=== PATIENT | male | born 1960 | race Caucasian/White ===

== ENCOUNTER → 2017-12-19 | Outpatient (CLI) | payer OTHER | LOC: M RAD 07:05 | DX: I10 Essential (primary) hypertension (principal); E66.3 Overweight; Z82.49 Family history of ischemic heart disease and other diseases of the circulatory system | CPT/HCPCS: 76775 ==

== ENCOUNTER → 2018-01-10 | Outpatient (CLI) | payer OTHER | LOC: M CARPUL 08:17 | DX: I10 Essential (primary) hypertension (principal); E66.3 Overweight | CPT/HCPCS: 93306 ==

== ENCOUNTER 2019-05-30 16:32 | Emergency (ER) | payer OTHER ==
[~2019-05-30] VITALS: Ht 182.9 cm; Wt 102.1 kg
[2019-05-30] MEDS ORDERED: MULTCAP PO (16:48)
[2019-05-30] MEDS ORDERED: LISI10TA4 (16:48)
[2019-05-30 17:12] LABS: BASO # 0.1 10^3/uL (0.0-0.2); BASO % 1.2 % (0.0-1.0); EOS # 0.6 10^3/uL (0.0-0.5); EOS % 7.3 % (0.0-3.0); HEMATOCRIT 40.2 % (42.0-52.0); HEMOGLOBIN 14.2 g/dl (13.5-17.5); LYMPH # 2.4 10^3/uL (1.5-5.0); LYMPH % 28.8 % (24.0-44.0); MEAN CORPUSCULAR HEMOGLOBIN 32.1 pg (27.0-33.0); MEAN CORPUSCULAR HGB CONC 35.3 g/dl (32.0-36.5); MONO # 0.7 10^3/uL (0.0-0.8); NEUTROPHILS # 4.4 10^3/uL (1.5-8.5); NEUTROPHILS % 53.3 % (36.0-66.0); PLATELET COUNT, AUTOMATED 245 10^3/uL (150-450); RED BLOOD COUNT 4.42 10^6/uL (4.30-6.10); WHITE BLOOD COUNT 8.3 10^3/uL (4.0-10.0)
[2019-05-30 17:36] LABS: BLOOD UREA NITROGEN 23 MG/DL (7-18); CALCIUM LEVEL 9.5 MG/DL (8.8-10.2); CARBON DIOXIDE LEVEL 26 MEQ/L (21-32); CHLORIDE LEVEL 106 MEQ/L (98-107); CK-MB VALUE MASS 2.8 NG/ML (<3.6); CPK CREATINE PHOSPHOKINASE 186 U/L (39-308); GLOMERULAR FILTRATION RATE > 60.0 (>49); GLUCOSE, FASTING 94 MG/DL (70-100); MB/CK RELATIVE INDEX 1.51 (< OR =4); SODIUM LEVEL 137 MEQ/L (136-145); TROPONIN I < 0.02 NG/ML (< 0.10)
[2019-05-30 17:45] VITALS: BP 133/77
[2019-05-30] MEDS ORDERED: SOMA350T PO (17:49)
[2019-05-30] MEDS ORDERED: GABA-843 PO (17:49)
--- NOTE | 2019-05-30 18:16 | REP ---
CHEST, SINGLE VIEW: There is no evidence of acute infiltrate. No pleural effusion is seen. The heart is normal in size. The mediastinal silhouette is unremarkable. The visualized osseous structures are intact. IMPRESSION: No acute pulmonary disease. Electronically Signed by Sandip Valdovinos MD 05/31/2019 10:25 A
--- NOTE | 2019-05-31 05:54 | ECGEPIP ---
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
== END 2019-05-30 18:01 | disposition home or self-care (01) ==
LOC: M ED 16:32
DX: G62.9 Polyneuropathy, unspecified (principal); I10 Essential (primary) hypertension; Z79.899 Other long term (current) drug therapy; Z88.0 Allergy status to penicillin; Z88.8 Allergy status to other drugs, medicaments and biological substances

== ENCOUNTER → 2019-10-22 | Outpatient (CLI) | payer SELFPAY ==
[~2019-10-22] MED LIST: GABA-843 PO; LISI10TA4; MULTCAP PO; SOMA350T PO
== END ==
LOC: M LABSMTC 11:03
PROVIDERS: ATTEND Pediatrics
DX: Z20.828 Contact with and (suspected) exposure to other viral communicable diseases (principal); Z11.59 Encounter for screening for other viral diseases

== ENCOUNTER → 2019-11-29 | Outpatient (CLI) | payer SELFPAY | LOC: M LABSMTC 10:05 | PROVIDERS: ATTEND Pediatrics | DX: Z11.59 Encounter for screening for other viral diseases (principal) ==

== ENCOUNTER 2021-04-29 19:37 | Observation (INO) | payer OTHER, SELFPAY ==
[~2021-04-29] VITALS: Ht 182.9 cm; Wt 101.6 kg
[~2021-04-29 19:37] MED LIST changes: +GABA-282 PO; -GABA-843 PO; +LISI10TA22; -LISI10TA4
[2021-04-29 20:55] LABS: BASO # 0.1 10^3/uL (0.0-0.2); EOS # 0.7 10^3/uL (0.0-0.5); EOS % 8.3 % (0.0-3.0); HEMATOCRIT 33.9 % (42.0-52.0); HEMOGLOBIN 11.3 g/dl (13.5-17.5); LYMPH # 2.6 10^3/uL (1.5-5.0); LYMPH % 29.3 % (24.0-44.0); MEAN CORPUSCULAR HEMOGLOBIN 29.4 pg (27.0-33.0); MEAN CORPUSCULAR HGB CONC 33.3 g/dl (32.0-36.5); MEAN CORPUSCULAR VOLUME 88.3 fl (80.0-96.0); MONO # 0.8 10^3/uL (0.0-0.8); MONO % 9.6 % (2.0-8.0); NEUTROPHILS # 4.5 10^3/uL (1.5-8.5); NEUTROPHILS % 51.6 % (36.0-66.0); PLATELET COUNT, AUTOMATED 264 10^3/uL (150-450); RED BLOOD COUNT 3.84 10^6/uL (4.30-6.10); WHITE BLOOD COUNT 8.8 10^3/uL (4.0-10.0)
[2021-04-29 21:06] LABS: INR 0.98; PROTHROMBIN TIME 13.4 SECONDS (12.7-14.5)
[2021-04-29 21:07] LABS: PARTIAL THROMBOPLASTIN TIME 31.8 SECONDS (25.9-37.0)
[2021-04-29 21:20] LABS: CK-MB VALUE MASS 3.9 NG/ML (<3.6); MB/CK RELATIVE INDEX 1.79 (< OR =4)
[2021-04-29 21:39] LABS: ALBUMIN 3.6 GM/DL (3.2-5.2); ALT/SGPT 27 U/L (12-78); BILIRUBIN,DIRECT 0.2 MG/DL (0.0-0.2); BILIRUBIN,TOTAL 0.8 MG/DL (0.2-1.0); BLOOD UREA NITROGEN 22 MG/DL (7-18); CALCIUM LEVEL 8.6 MG/DL (8.8-10.2); CARBON DIOXIDE LEVEL 26 MEQ/L (21-32); CHLORIDE LEVEL 107 MEQ/L (98-107); CREATININE FOR GFR 1.08 MG/DL (0.70-1.30); FREE T4 1.15 NG/DL (0.76-1.46); GLOMERULAR FILTRATION RATE > 60.0 (>49); GLUCOSE, FASTING 96 MG/DL (70-100); POTASSIUM SERUM 4.2 MEQ/L (3.5-5.1); SODIUM LEVEL 140 MEQ/L (136-145); TOTAL PROTEIN 7.1 GM/DL (6.4-8.2)
[2021-04-29] MEDS ORDERED: ASPIRIN 81 MG CHEW TABLET PO ONE (22:35)
[2021-04-29] MEDS ORDERED: LISI10TA22 PO (23:12)
[2021-04-29] MEDS ORDERED: VITMTA PO (23:12)
[2021-04-29] MEDS ORDERED: ACETAMINOPHEN TAB 650MG DOSE (2X325MG) PO PRN (23:15)
[2021-04-29] MEDS ORDERED: HOME MED LIST COMPLETE! XX SCH (23:15)
[2021-04-30 01:21] VITALS: BP 124/74
[2021-04-30 01:23] LABS: MAGNESIUM LEVEL 2.1 MG/DL (1.8-2.4); PERCENT SATURATION 17.8 % (19.7-50.0)
[2021-04-30 06:00] VITALS: BP 121/78
[2021-04-30 06:37] LABS: BASO # 0.1 10^3/uL (0.0-0.2); BASO % 1.2 % (0.0-1.0); EOS # 0.8 10^3/uL (0.0-0.5); EOS % 10.4 % (0.0-3.0); HEMATOCRIT 35.5 % (42.0-52.0); HEMOGLOBIN 11.7 g/dl (13.5-17.5); LYMPH # 1.9 10^3/uL (1.5-5.0); LYMPH % 25.4 % (24.0-44.0); MEAN CORPUSCULAR HEMOGLOBIN 29.3 pg (27.0-33.0); MEAN CORPUSCULAR VOLUME 88.8 fl (80.0-96.0); MONO # 0.7 10^3/uL (0.0-0.8); NEUTROPHILS # 3.8 10^3/uL (1.5-8.5); NEUTROPHILS % 52.7 % (36.0-66.0); PLATELET COUNT, AUTOMATED 242 10^3/uL (150-450); WHITE BLOOD COUNT 7.3 10^3/uL (4.0-10.0)
[2021-04-30 06:58] LABS: BLOOD UREA NITROGEN 16 MG/DL (7-18); CALCIUM LEVEL 8.6 MG/DL (8.8-10.2); CARBON DIOXIDE LEVEL 28 MEQ/L (21-32); CHLORIDE LEVEL 107 MEQ/L (98-107); CREATININE FOR GFR 0.96 MG/DL (0.70-1.30); GLOMERULAR FILTRATION RATE > 60.0 (>49); GLUCOSE, FASTING 97 MG/DL (70-100); SODIUM LEVEL 138 MEQ/L (136-145)
[2021-04-30] MEDS: ATORVASTATIN 20 MG TAB PO SCH (08:16)
[2021-04-30] MEDS: CLOPIDOGREL 75 MG TAB PO SCH (08:16)
[2021-04-30 08:17] VITALS: BP 131/77
[2021-04-30] MEDS: MULTIVITAMINS/MINERALS THERAP 1 TAB PO SCH (08:17)
[2021-04-30 08:49] LABS: CHOLESTEROL RISK RATIO 3.596 (<5)
[2021-04-30] MEDS ORDERED: ISOVUE-370 76% 100ML VIAL As Ordered ONE (11:03)
[2021-04-30 14:10] VITALS: BP 118/66
[2021-04-30] MEDS ORDERED: SODIUM CHLORIDE 0.9% 1000ML IV ONE (18:00)
[2021-04-30] MEDS: NS 1,000 ML IV SCH (18:52)
[2021-04-30 22:00] VITALS: BP 118/73
[2021-05-01] MEDS: NS 1,000 ML IV SCH (02:20)
[2021-05-01 06:00] VITALS: BP 123/73
[2021-05-01] MEDS: ATORVASTATIN 20 MG TAB PO SCH (08:58)
[2021-05-01] MEDS: CLOPIDOGREL 75 MG TAB PO SCH (08:59)
[2021-05-01] MEDS: MULTIVITAMINS/MINERALS THERAP 1 TAB PO SCH (08:59)
[2021-05-01] MEDS ORDERED: FLUBLOK(EGG FREE)(QUAD)INFLUENZA VACC 0.5ML SYRINGE 18YRS & OLDER IM ONE (09:00)
[2021-05-01] MEDS ORDERED: ENOXAPARIN 40MG/0.4ML SYRINGE (J1650 PER 10MG) SC SCH (09:00)
[2021-05-01 10:24] LABS: BASO # 0.1 10^3/uL (0.0-0.2); EOS # 0.6 10^3/uL (0.0-0.5); HEMATOCRIT 35.5 % (42.0-52.0); HEMOGLOBIN 11.6 g/dl (13.5-17.5); LYMPH # 1.8 10^3/uL (1.5-5.0); LYMPH % 20.6 % (24.0-44.0); MEAN CORPUSCULAR HGB CONC 32.7 g/dl (32.0-36.5); MEAN CORPUSCULAR VOLUME 88.8 fl (80.0-96.0); MONO # 0.7 10^3/uL (0.0-0.8); MONO % 8.4 % (2.0-8.0); NEUTROPHILS # 5.4 10^3/uL (1.5-8.5); NEUTROPHILS % 62.8 % (36.0-66.0); PLATELET COUNT, AUTOMATED 265 10^3/uL (150-450); WHITE BLOOD COUNT 8.6 10^3/uL (4.0-10.0)
[2021-05-01 10:47] LABS: FOLATE 14.8 NG/ML (>5.4)
[2021-05-01 10:52] LABS: BLOOD UREA NITROGEN 13 MG/DL (7-18); CALCIUM LEVEL 8.5 MG/DL (8.8-10.2); CARBON DIOXIDE LEVEL 28 MEQ/L (21-32); CHLORIDE LEVEL 108 MEQ/L (98-107); CREATININE FOR GFR 0.92 MG/DL (0.70-1.30); GLOMERULAR FILTRATION RATE > 60.0 (>49); GLUCOSE, FASTING 95 MG/DL (70-100); POTASSIUM SERUM 4.1 MEQ/L (3.5-5.1); SODIUM LEVEL 138 MEQ/L (136-145)
[2021-05-01] MEDS ORDERED: CLOP75TA2 PO (12:03)
[2021-05-01] MEDS ORDERED: LIPI80TA PO ×2 (12:03→15:36)
[2021-05-01] MEDS ORDERED: PLAV1TAB2 PO (15:36)
[2021-05-02] MEDS ORDERED: ATOR80TA59 PO (11:18)
[2021-05-02] MEDS ORDERED: PLAV1TAB2 PO (11:18)
== END 2021-05-01 13:02 | disposition home or self-care (01) ==
LOC: M ED 19:37 → M ED INP 19:38 → EEVIPCON 19:38 → M MSPAV 04-30 01:21
PROVIDERS: ADMIT Internal Medicine; ATTEND Internal Medicine
DX: H53.461 Homonymous bilateral field defects, right side (principal); R20.2 Paresthesia of skin; R91.8 Other nonspecific abnormal finding of lung field; I63.231 Cerebral infarction due to unspecified occlusion or stenosis of right carotid arteries; I10 Essential (primary) hypertension; D64.9 Anemia, unspecified; Z79.899 Other long term (current) drug therapy; Z79.01 Long term (current) use of anticoagulants; Z88.6 Allergy status to analgesic agent; Z88.0 Allergy status to penicillin
CPT/HCPCS: 36415; 70450; 70496; 70498; 70551; 71045; 80048; 80061; 80076; 82550; 82553; 82607; 82728; 82746; 83550; 83735; 84425; 84439; 84443; 84484; 85025; 85610; 85730; 87641; 87798; 93005; 93041; 93306; 93880; 94760; 96372; 99285; J1650; Q9967

== ENCOUNTER 2021-05-02 09:34 | Observation (INO) | payer OTHER ==
[~2021-05-02] VITALS: Ht 182.9 cm; Wt 99.8 kg
[~2021-05-02 09:34] MED LIST changes: +CLOP75TA2 PO; +LIPI80TA PO; +LISI10TA22 PO; +PLAV1TAB2 PO; +VITMTA PO
[2021-05-02 10:27] LABS: BASO # 0.1 10^3/uL (0.0-0.2); BASO % 1.2 % (0.0-1.0); EOS # 0.8 10^3/uL (0.0-0.5); EOS % 9.7 % (0.0-3.0); HEMATOCRIT 38.6 % (42.0-52.0); HEMOGLOBIN 12.3 g/dl (13.5-17.5); LYMPH # 1.9 10^3/uL (1.5-5.0); MEAN CORPUSCULAR HEMOGLOBIN 28.5 pg (27.0-33.0); MEAN CORPUSCULAR HGB CONC 31.9 g/dl (32.0-36.5); MEAN CORPUSCULAR VOLUME 89.4 fl (80.0-96.0); MONO # 0.7 10^3/uL (0.0-0.8); MONO % 8.7 % (2.0-8.0); NEUTROPHILS # 4.4 10^3/uL (1.5-8.5); NEUTROPHILS % 56.1 % (36.0-66.0); PLATELET COUNT, AUTOMATED 257 10^3/uL (150-450); RED BLOOD COUNT 4.32 10^6/uL (4.30-6.10); WHITE BLOOD COUNT 7.8 10^3/uL (4.0-10.0)
[2021-05-02 10:41] LABS: INR 0.99; PROTHROMBIN TIME 13.5 SECONDS (12.7-14.5)
[2021-05-02 10:42] LABS: PARTIAL THROMBOPLASTIN TIME 30.7 SECONDS (25.9-37.0)
[2021-05-02 10:58] LABS: BLOOD UREA NITROGEN 17 MG/DL (7-18); CALCIUM LEVEL 8.4 MG/DL (8.8-10.2); CARBON DIOXIDE LEVEL 25 MEQ/L (21-32); CHLORIDE LEVEL 110 MEQ/L (98-107); CREATININE FOR GFR 0.93 MG/DL (0.70-1.30); GLOMERULAR FILTRATION RATE > 60.0 (>49); GLUCOSE, FASTING 107 MG/DL (70-100); POTASSIUM SERUM 4.1 MEQ/L (3.5-5.1); SODIUM LEVEL 142 MEQ/L (136-145)
[2021-05-02 10:59] LABS: CK-MB VALUE MASS 2.2 NG/ML (<3.6); MB/CK RELATIVE INDEX 1.58 (< OR =4)
[2021-05-02] MEDS ORDERED: ATOR80TA59 PO (11:18)
[2021-05-02] MEDS ORDERED: PLAV1TAB2 PO (11:18)
[2021-05-02] MEDS ORDERED: HOME MED LIST COMPLETE! XX SCH (12:50)
[2021-05-02 17:30] VITALS: BP 139/83
[2021-05-02 20:00] VITALS: BP 136/71
[2021-05-03] VITALS: BP 125/70
[2021-05-03 04:00] VITALS: BP 113/54
[2021-05-03 04:50] LABS: BASO # 0.1 10^3/uL (0.0-0.2); BASO % 1.1 % (0.0-1.0); EOS % 10.5 % (0.0-3.0); HEMATOCRIT 35.5 % (42.0-52.0); HEMOGLOBIN 11.4 g/dl (13.5-17.5); LYMPH # 2.4 10^3/uL (1.5-5.0); LYMPH % 26.5 % (24.0-44.0); MEAN CORPUSCULAR HEMOGLOBIN 28.3 pg (27.0-33.0); MEAN CORPUSCULAR HGB CONC 32.1 g/dl (32.0-36.5); MEAN CORPUSCULAR VOLUME 88.1 fl (80.0-96.0); MONO # 0.8 10^3/uL (0.0-0.8); MONO % 9.1 % (2.0-8.0); NEUTROPHILS # 4.8 10^3/uL (1.5-8.5); NEUTROPHILS % 52.6 % (36.0-66.0); PLATELET COUNT, AUTOMATED 250 10^3/uL (150-450); RED BLOOD COUNT 4.03 10^6/uL (4.30-6.10); WHITE BLOOD COUNT 9.1 10^3/uL (4.0-10.0)
[2021-05-03 05:16] LABS: ALBUMIN 3.1 GM/DL (3.2-5.2); ALT/SGPT 23 U/L (12-78); BILIRUBIN,TOTAL 0.6 MG/DL (0.2-1.0); BLOOD UREA NITROGEN 13 MG/DL (7-18); CALCIUM LEVEL 8.5 MG/DL (8.8-10.2); CARBON DIOXIDE LEVEL 27 MEQ/L (21-32); CHLORIDE LEVEL 108 MEQ/L (98-107); CREATININE FOR GFR 0.97 MG/DL (0.70-1.30); GLOMERULAR FILTRATION RATE > 60.0 (>49); GLUCOSE, FASTING 93 MG/DL (70-100); MAGNESIUM LEVEL 1.9 MG/DL (1.8-2.4); POTASSIUM SERUM 3.7 MEQ/L (3.5-5.1); SODIUM LEVEL 139 MEQ/L (136-145); TOTAL PROTEIN 6.7 GM/DL (6.4-8.2)
[2021-05-03 08:15] VITALS: BP 142/74
[2021-05-03 08:20] VITALS: BP 142/74
[2021-05-03] MEDS ORDERED: MULTIVITAMINS/MINERALS THERAP 1 TAB PO SCH (09:00)
[2021-05-03] MEDS ORDERED: ATORVASTATIN 20 MG TAB PO SCH (09:00)
[2021-05-03] MEDS ORDERED: CLOPIDOGREL 75 MG TAB PO SCH (09:00)
== END 2021-05-03 11:14 | disposition home or self-care (01) ==
LOC: M ED 09:34 → M ED INP 11:59 → ENRESERV 12:13 → M PCU 17:25
PROVIDERS: ADMIT Internal Medicine; ATTEND Internal Medicine
DX: I63.231 Cerebral infarction due to unspecified occlusion or stenosis of right carotid arteries (principal); R20.2 Paresthesia of skin; H53.461 Homonymous bilateral field defects, right side; I10 Essential (primary) hypertension; M50.221 Other cervical disc displacement at C4-C5 level; M50.222 Other cervical disc displacement at C5-C6 level; M54.50 Low back pain, unspecified; Z79.899 Other long term (current) drug therapy; Z79.02 Long term (current) use of antithrombotics/antiplatelets; Z88.0 Allergy status to penicillin; Z88.6 Allergy status to analgesic agent; Z77.22 Contact with and (suspected) exposure to environmental tobacco smoke (acute) (chronic); Z82.49 Family history of ischemic heart disease and other diseases of the circulatory system

== ENCOUNTER → 2024-11-15 | Outpatient (CLI) | payer MEDICARE, OTHER ==
[~2024-11-15] MED LIST changes: +ATOR-398 PO; +ATOR80TA59 PO; +CLOP75TA99 PO; +GABA-1172 PO; -GABA-282 PO; -LIPI80TA PO; -PLAV1TAB2 PO
[2024-11-15 15:05] LABS: PLATELET COUNT, AUTOMATED 283 10^3/uL (150-450)
[2024-11-15 15:08] LABS: APPEARANCE, URINE CLEAR (CLEAR); BACTERIA, URINE AUTO NEGATIVE (NEGATIVE); BILIRUBIN, URINE AUTO NEGATIVE (NEGATIVE); BLOOD, URINE BLOOD NEGATIVE (NEGATIVE); GLUCOSE, URINE (UA) AUTO NEGATIVE (NEGATIVE); KETONE, URINE AUTO NEGATIVE (NEGATIVE); LEUKOCYTE ESTERASE, URINE AUTO NEGATIVE (NEGATIVE); MUCUS, URINE SMALL (NEGATIVE); NITRITE, URINE AUTO NEGATIVE (NEGATIVE); PROTEIN, URINE AUTO NEGATIVE (NEGATIVE); RBC, URINE AUTO 0 /HPF (0-3); SPECIFIC GRAVITY URINE AUTO 1.011 (1.002-1.035); SQUAMOUS EPITHELIAL CELL UR AU 0 /HPF (0-6); UROBILINOGEN, URINE AUTO 0.2 mg/dL (0.0-2.0); WBC, URINE AUTO 0 /HPF (0-3)
[2024-11-15 15:32] LABS: PROSTATIC SPECIFIC AG MONITOR 1.9 NG/ML (< 4.00)
[2024-11-15 15:33] LABS: ALT/SGPT 37.0 U/L (7.0-40); AST/SGOT 36.0 U/L (<34); CALCIUM LEVEL 9.5 MG/DL (8.3-10.6); CARBON DIOXIDE LEVEL 28.0 MMOL/L (20-31); CHLORIDE LEVEL 100.0 MMOL/L (98-107); CHOLESTEROL LEVEL 147.0 MG/DL (<200); CHOLESTEROL RISK RATIO 2.69 (<5); CREATININE FOR GFR 1.07 MG/DL (0.70-1.30); GLOMERULAR FILTRATION RATE 76.5 (>49); LDL CHOLESTEROL 80.7 MG/DL (<100); NON-HDL-C 92.5 MG/DL; POTASSIUM SERUM 4.9 MMOL/L (3.5-5.1); SODIUM LEVEL 138.0 MMOL/L (136-145); TRIGLYCERIDES LEVEL 59.0 MG/DL (<150)
== END ==
LOC: M WUC 10:17
PROVIDERS: ATTEND Family Medicine
DX: I10 Essential (primary) hypertension (principal); R35.1 Nocturia; E78.5 Hyperlipidemia, unspecified